=== PATIENT | male | born 1950 | race Caucasian/White ===

== ENCOUNTER → 2017-10-18 | Outpatient (CLI) | payer MEDICARE ==
--- NOTE | 2017-10-18 13:29 | CONS ---
CONSULTATION DATE OF SERVICE: 10/18/2017 This 67-year-old gentleman has been evaluated in sleep center for obstructive sleep apnea-hypopnea syndrome. HISTORY OF PRESENT ILLNESS/SLEEP WAKE EVALUATION: Patient has a long history of obstructive sleep apnea, last time was seen by me in sleep center in 2013. The patient continued to use his CPAP equipment every night. CPAP pressure is 11 cm of water. According to patient, he does not snore while he is using his machine and he does not have episodes of stopped breathing when he sleeps with the machine, but patient still wakes up from sleep up to 4 times with up to 4 episodes of nocturia. He also has restless leg symptoms. Previously, he was tried on medications for restless legs, but it was not very effective. Patient usual sleep schedule from around 10 or 11 p.m. until 6 or 7 a.m. in the morning. No problem with falling asleep. He sleeps on in different positions including back and side. [place] Sleepiness Scale today is 6. PAST MEDICAL HISTORY: Positive for hypertension, hypothyroidism, acid reflux, also history of right hip infection in 2013. PAST SURGICAL HISTORY: UPPP and nasal surgery, cardiac cath in 2003 mild blockage, but no procedures done. FAMILY HISTORY: Hypertension, heart problems, hyperlipidemia, arthritis, sinus headache, snoring. SOCIAL HISTORY: Positive history of smoking in the past, quit 30 years ago. Alcohol consumption none. PHYSICAL EXAM: During physical exam, a 67-year-old gentleman without distress. VITAL SIGNS: BP 139/80, HR 56, RR 16, height 5 feet 11 inches, weight 222, BMI 30.9, temperature 98.5, oxygen saturation in room air 97%. HEENT: PERRLA, EOMI. Oropharynx extremely low position of soft palate. NECK: Supple, no JVD. Thyroid is not palpable. LUNGS: Clear to percussion and to auscultation. Good air exchange. No wheezing or rhonchi. HEART: S1, S2 regular. No murmurs, gallops, or rubs. ABDOMEN: Slightly obese. EXTREMITIES: No clubbing or cyanosis. SILVER SOLUTION MIXER: Awake, alert, and oriented X3. Cranial nerves 2 to 7 intact. There is no fasciculation or atrophy. noted. No focal deficits observed. IMPRESSION: 1. Obstructive sleep apnea-hypopnea syndrome for many years. The patient continued to use his CPAP equipment. Presently, some problem with the usage of the machine. The machine is old. CPAP pressure is 11 cm of water. 2. Mild obesity, BMI 30.9. 3. Hypertension. 4. Hyperlipidemia. 5. Acid reflux. 6. Status post UPPP and nasal surgery. 7. History of right hip infection in 2013. PLAN: 1. Continue treatment with CPAP every night for the whole night. 2. Prescription for new CPAP unit with a pressure of 11 cm of water. 3. I will see patient for followup visit to check his compliance with CPAP after he receives new unit to evaluate his clinical response on treatment with that and to check apnea-hypopnea index while he is using his CPAP. 4. Losing weight. 5. Sleep hygiene with regular time in bed for at least 8 hours. 6. No driving if feeling any sleepiness. Thank you very much for allowing me to participate in management of your patient. Sincerely, Shane Borrego MD, PhD, FAASM Diplomat of [place] [employer] [place] [employer] Edge Sander of [facility] [place] MMODL / DAVIDN: [id number] /
== END | disposition home or self-care (01) ==
LOC: SLEEP 11:20
PROVIDERS: ATTEND Internal Medicine
DX: G47.33 Obstructive sleep apnea (adult) (pediatric) (principal); E66.9 Obesity, unspecified; I10 Essential (primary) hypertension; E78.5 Hyperlipidemia, unspecified; K21.9 Gastro-esophageal reflux disease without esophagitis; Z98.890 Other specified postprocedural states; Z86.19 Personal history of other infectious and parasitic diseases; Z99.89 Dependence on other enabling machines and devices; Z68.30 Body mass index [BMI] 30.0-30.9, adult; Z87.891 Personal history of nicotine dependence
CPT/HCPCS: 99211

== ENCOUNTER → 2018-01-15 | Outpatient (CLI) | payer MEDICARE ==
--- NOTE | 2018-01-16 13:35 | MR ---
EXAMINATION TYPE: MR shoulder RT wo con DATE OF EXAM: 01/15/2018 COMPARISON: NONE HISTORY: Right shoulder pain TECHNIQUE: Multiplanar, multisequence imaging of the right shoulder is performed without contrast. FINDINGS: Rotator Cuff: There is loss of the humeral acromial joint space. There is complete tear of the supras pinatus tendon with tendon retraction to the mid acromion level. There is some fatty infiltration and atrophy of the supraspinatus tendon. Subscapularis and infraspinatus and teres minor appear intact. Acromioclavicular Joint: There is hypertrophy with some downward spurring which can contribute to imp ingement syndrome. Glenohumeral Joint: There is elevation of the humerus in relation to the glenoid. There is narrowing of the lateral humeral joint space. Thinning of the articular cartilage is noted. Labrum: The labrum appears grossly intact given limitation of non-arthrogram study. Biceps Tendon: The long head of biceps is in normal location within bicipital groove. There is some f luid surrounding the long head of the biceps tendon compatible some mild to moderate tendinosis. Bone marrow signal: No focal abnormal marrow signal is appreciated. Other: Minimal joint fluid is present. There is fluid within the subacromial bursa and minimal fluid within the subdeltoid bursa. IMPRESSION: 1. Complete tear of the supraspinatus tendon with retraction to at least the mid acromion. Supraspina tus muscle atrophy is noted. 2. Small joint effusion. 3. Osteoarthritic degenerative change glenohumeral joint space 4. Mild to moderate tendinosis long head biceps tendon
== END | disposition home or self-care (01) ==
LOC: RADMRIMAIN 11:10
PROVIDERS: ATTEND Orthopaedic Surgery
DX: M19.011 Primary osteoarthritis, right shoulder (principal); M75.111 Incomplete rotator cuff tear or rupture of right shoulder, not specified as traumatic; M62.511 Muscle wasting and atrophy, not elsewhere classified, right shoulder; M25.811 Other specified joint disorders, right shoulder

== ENCOUNTER → 2018-03-14 | Outpatient (CLI) | payer MEDICARE ==
--- NOTE | 2018-03-14 14:10 | SFUN ---
SLEEP CENTER FOLLOW UP NOTE DATE OF SERVICE: 03/14/2018 This 67-year-old gentleman has been followed in sleep center for treatment of obstructive sleep apnea-hypopnea syndrome. Recently patient received new CPAP unit and he is able to use CPAP equipment every night for the whole night without any significant problems. Sleeps well with that. Feels well during the day. [place] Sleepiness Scale today is only 2. I checked his CPAP unit. CPAP pressure 11 cm of water. Patient demonstrated 100% compliance with treatment. He is using it 30/30 nights for more than 4 hours. Average usage is 7.3 hours. Leak is only 7 L/minute which is absolutely normal. Apnea-hypopnea index only 1.9, which is perfect. MEDICATIONS: Atenolol, Synthroid, losartan, modafinil, aspirin. PHYSICAL EXAMINATION: GENERAL: During physical exam, patient in no distress. VITAL SIGNS: BP 118/74, HR about 66, RR 16, weight 225.4, temp 98.0, oxygen saturation at room air 97%. HEENT: PERRLA, EOMI. Oropharynx status post UPPP, no uvula. NECK: Supple, no JVD. Thyroid is not palpable. LUNGS: Clear to percussion and to auscultation. Good air exchange. No wheezing or rhonchi. HEART: S1, S2 regular. No murmurs, gallops, or rubs. ABDOMEN: Slight obese. EXTREMITIES: No clubbing or cyanosis. FOAM MACHINE OPERATOR: Awake, alert, and oriented X3. Cranial nerves 2 to 7 intact. There is no fasciculation or atrophy. noted. No focal deficits observed. IMPRESSION: 1. Obstructive sleep apnea-hypopnea syndrome on full control with CPAP at 11 cm of water. Patient demonstrated 100% compliance with treatment, benefiting from treatment. 2. History of narcolepsy. Patient is on treatment with modafinil and feels normal alertness during the day. If he stops modafinil, he continued to feel sleepiness. 3. Hypertension. 4. Hyperlipidemia. 5. Acid reflux. 6. Status post UPPP and nasal surgery. 7. Hypothyroidism. 8. History of right hip infection in 2013. PLAN: 1. Patient will continue to use CPAP equipment every night. 2. Sleep hygiene with regular time in bed for at least 8 hours. 3. No driving if feeling any sleepiness. 4. Watching and losing weight. Thank you very much for allowing me to participate in management of your patient. Sincerely, Shane Borrego MD, PhD, FAASM Diplomat of [place] [employer] [employer] Over[employer] Crane Truck Loader of [facility] [place] TOMMY / JOSIAS: [id number] /
== END | disposition home or self-care (01) ==
LOC: SLEEP 10:45
PROVIDERS: ATTEND Internal Medicine
DX: G47.33 Obstructive sleep apnea (adult) (pediatric) (principal); I10 Essential (primary) hypertension; E78.5 Hyperlipidemia, unspecified; K21.9 Gastro-esophageal reflux disease without esophagitis; E03.9 Hypothyroidism, unspecified; Z98.890 Other specified postprocedural states; Z86.19 Personal history of other infectious and parasitic diseases; Z99.89 Dependence on other enabling machines and devices; Z79.899 Other long term (current) drug therapy; Z79.82 Long term (current) use of aspirin

== ENCOUNTER → 2018-09-04 | Outpatient (CLI) | payer MEDICARE ==
--- NOTE | 2018-09-11 12:07 | HM ---
HOLTER MONITOR REPORT THIS IS A 24-HOUR DCG. Patient described only activities, but did not have any symptoms. Predominant rhythm appears to be sinus with a heart rate ranging from 40 to 94 beats per minute with average heart rate of 61 beats per minute. Isolated PACs and PVCs were noted. There was no evidence of any significant SVT, VT or bradyarrhythmia on this recording. FINAL IMPRESSION: Sinus rhythm and sinus bradycardia was noted. There was no evidence of any significant tachy or bradyarrhythmias. Rare PVCs were noted. MMODL / IJN: [id number] /
== END | disposition home or self-care (01) ==
LOC: RADECHMAIN 11:56
PROVIDERS: ATTEND Psychiatry & Neurology Neurology
DX: R00.1 Bradycardia, unspecified (principal)
CPT/HCPCS: 93225; 93226

== ENCOUNTER → 2019-05-29 | Outpatient (CLI) | payer MEDICARE ==
--- NOTE | 2019-05-29 17:43 | PN ---
PROGRESS NOTE DATE OF SERVICE: 05/29/2019 This is a 69-year-old gentleman who has been followed in the sleep center for treatment of obstructive sleep apnea-hypopnea syndrome. The patient continues to use his CPAP equipment every night for the whole night without significant problems related to mask fitting, pressure or humidification. [place] Sleepiness Scale today is 6. Patient continues to use equipment every night. I checked his CPAP unit. CPAP pressure is 11 cm of water. Usage is every night, and 28/30 nights for more than 4 hours with average usage 6.9 hours per night. Leak is 4 L/minute, which is absolutely minimal. Apnea-hypopnea index is only 1.1, which is perfect. The patient is on treatment with modafinil for possible narcolepsy. On modafinil he feels well during the day; no significant excessive daytime sleepiness. He is taking 200 mg in the morning. MEDICATIONS: 1. Synthroid. 2. Atenolol. 3. Losartan. 4. Modafinil. 5. Aspirin. PHYSICAL EXAMINATION: GENERAL: A pleasant patient in no distress. VITAL SIGNS: BP 117/72, HR 52, RR 16, height 5 feet 10-1/2 inches, weight 229, body mass index 32.5, temperature 97.7, oxygen saturation at room air 94%. HEENT: PERRLA, EOMI. Evaluation of oropharynx showed tongue protrudes midline. Status post UPPP. Low position of soft palate. Mallampati III. NECK: Supple. No JVD. Thyroid is not palpable. LUNGS: Clear to percussion and to auscultation. Good air exchange. No wheezing or rhonchi. HEART: S1, S2 regular. No murmurs, gallops or rubs. ABDOMEN: Soft and nontender. Bowel sounds are present. No organomegaly. EXTREMITIES: No clubbing or cyanosis. ACCOUNT GENERAL MANAGER: Awake, alert, and oriented X3. Cranial nerves 2 to 7 intact. There is no fasciculation or atrophy. noted. No focal deficits observed. IMPRESSION: 1. Obstructive sleep apnea-hypopnea syndrome. The patient demonstrated great compliance with treatment, benefitting from treatment. 2. Narcolepsy. Patient is on treatment with modafinil 200 mg in the morning. With this regimen, no daytime sleepiness. 3. Hypertension. 4. Hyperlipidemia. 5. Acid reflux. 6. Status post UPPP and nasal surgery. 7. Hypothyroidism. 8. History of right hip infection in 2014. PLAN: 1. Patient will continue to use CPAP equipment every night for the whole night with the same pressure, 11 cm of water. 2. Patient will continue to take modafinil 200 mg in the morning for treatment of sleepiness related to narcolepsy. 3. Sleep hygiene with regular time in bed for 7-1/2 to 8 hours per night. 4. Watching and losing weight. 5. Precautions related to driving. No driving if feeling any sleepiness. 6. I will maintain all necessary prescriptions for CPAP supplies, including mask, tube, filters. Thank you very much for allowing me to participate in the management of your patient. Sincerely, Shane Borrego MD, PhD, FAASM Diplomat of [place] [employer] [place] [employer] Platemaker of [facility] [place] MMODL / DAVIDN: [id number] /
== END | disposition home or self-care (01) ==
LOC: SLEEP 14:48
PROVIDERS: ATTEND Internal Medicine
DX: G47.33 Obstructive sleep apnea (adult) (pediatric) (principal); I10 Essential (primary) hypertension; E78.5 Hyperlipidemia, unspecified; K21.9 Gastro-esophageal reflux disease without esophagitis; E03.9 Hypothyroidism, unspecified; Z79.82 Long term (current) use of aspirin; Z79.890 Hormone replacement therapy; Z79.899 Other long term (current) drug therapy; Z87.39 Personal history of other diseases of the musculoskeletal system and connective tissue; Z98.890 Other specified postprocedural states; Z99.89 Dependence on other enabling machines and devices

== ENCOUNTER → 2020-05-27 | Outpatient (CLI) | payer MEDICARE ==
--- NOTE | 2020-05-27 23:55 | SFUN ---
SLEEP CENTER FOLLOW UP NOTE DATE OF SERVICE: 05/27/2020 This is a 70-year-old gentleman who has been followed in Sleep Center for treatment of obstructive sleep apnea-hypopnea syndrome and narcolepsy. The patient continues to use his CPAP equipment every night for the whole night. No snoring with the machine. He is taking modafinil 200 mg in the morning. [place] Sleepiness Scale today 7, but sometimes he still may have episodes of sleepiness. I checked his CPAP unit. CPAP pressure is 11 cm of water. Usage is 100% of the time more than 4 hours with average usage 8.3 hours per night. Leak is only 2 L/minute. Apnea-hypopnea index is 1.3, which is absolutely perfect. MEDICATIONS: Synthroid 188 mcg once a day, Atenolol 25 mg once a day, losartan 100 mg once a day, modafinil 200 mg in the morning, iron, vitamin D, fish oil, magnesium supplements. PHYSICAL EXAMINATION: GENERAL: Patient in no distress. VITAL SIGNS: BP 124/76, HR 56, RR 16, height 5 feet 11-3/4 inches, weight pounds, body mass index 32.0, temperature 97.7, oxygen saturation at room air 98%. HEENT: PERRLA, EOMI. Evaluation of oropharynx low position of soft palate. Mallampati 3. NECK: Supple, no JVD. Thyroid is not palpable. LUNGS: Clear to percussion and to auscultation. Good air exchange. No wheezing or rhonchi. HEART: S1, S2 regular. No murmurs, gallops, or rubs. ABDOMEN: Soft and nontender. Bowel sounds are present. No organomegaly appreciated. EXTREMITIES: No clubbing or cyanosis. DRUG ABUSE TREATMENT SPECIALIST: Awake, alert, and oriented X3. Cranial nerves 2 to 7 intact. There is no fasciculation or atrophy. noted. No focal deficits observed. IMPRESSION: 1. Obstructive sleep apnea-hypopnea syndrome. Patient demonstrated 100% compliance with treatment, benefitting from treatment. 2. Narcolepsy, on treatment with modafinil in the morning. 3. Obesity. 4. Hypertension. 5. Hyperlipidemia. 6. Acid reflux. 7. Hypothyroidism. 8. Status post UPPP and nasal surgery. PLAN: 1. Patient will continue to use PAP equipment every night for the whole night. 2. Sleep hygiene with regular time in bed for at least 7-1/2 to 8 hours. 3. Precautions related to driving. No driving if feeling sleepiness. 4. I will maintain all necessary prescription for PAP supplies including mask, tube, filters. 5. Watching weight. 6. No driving if feeling sleepiness. 7. Follow-up visit in 6 months or earlier if patient has any problems. 8. Dose of modafinil could be considered to increase to 300 mg in the morning because sometimes patient feels tiredness and sleepiness on the second part of the day. Thank you very much for allowing me to participate in management of your patient. Sincerely, Shane Borrego MD, PhD, FAASM Diplomat of [place] [employer] Internal Medicine [employer] Specialist of [facility] [place] TOMMY / JOSIAS: [id number] /
== END | disposition home or self-care (01) ==
LOC: SLEEP 10:10
PROVIDERS: ATTEND Internal Medicine
DX: G47.33 Obstructive sleep apnea (adult) (pediatric) (principal); G47.419 Narcolepsy without cataplexy; I10 Essential (primary) hypertension; E78.5 Hyperlipidemia, unspecified; K21.9 Gastro-esophageal reflux disease without esophagitis; E66.9 Obesity, unspecified; E03.9 Hypothyroidism, unspecified; Z98.890 Other specified postprocedural states; Z99.89 Dependence on other enabling machines and devices

== ENCOUNTER → 2020-08-30 | Outpatient (CLI) | payer MEDICARE | END | disposition home or self-care (01) | LOC: LABWHC1 08:58 | PROVIDERS: ATTEND Surgery | DX: Z20.828 Contact with and (suspected) exposure to other viral communicable diseases (principal) | CPT/HCPCS: U0003; C9803 ==

== ENCOUNTER 2020-09-03 09:59 | Day surgery (SDC) | payer MEDICARE ==
[2020-08-30 15:50] VITALS: BMI 32.8
[~2020-09-03 09:59] MED LIST: LACTATED RINGERS 1,000 ML IV SCH
[2020-09-03] MEDS ORDERED: LIDOCAINE 1% (10MG/ML) FOR IV START INTRADERMA ONE (10:35)
[2020-09-03 10:37] VITALS: TEMP 98.4
[2020-09-03] MEDS ORDERED: PROPOFOL 10 MG/ML 20 ML VIAL IV ONE (10:38)
[2020-09-03] MEDS ORDERED: LIDOCAINE 1% INJ 10MG/ML (20 ML MDV) ONE (10:38)
--- NOTE | 2020-09-03 11:01 | P.GSHP ---
History of Present Illness H&P Date: 09/03/20 70-year-old male presents for screening colonoscopy. His last colonoscopy was many years ago. Denies any recent blood in his stool. Denies any abdominal pain. Denies family history of colon cancer. 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, sinus surgery, FLUID REMOVED FROM LEFT HIP Past Anesthesia/Blood Transfusion Reactions: No Reported Reaction Smoking Status: Former smoker - Past Family History Sister(s) Family Medical History: Cancer Additional Family Medical History / Comment(s): BREAST CANCER Father Family Medical History: Myocardial Infarction ([place]) Medications and Allergies Home Medications Medication Instructions Recorded Confirmed Type Levothyroxine Sodium [Synthroid] 188 mcg .ROUTE AC-BRKFST 02/11/15 08/30/20 History modafiniL [Modafinil] 200 mg AC-BRKFST 02/11/15 08/30/20 History atenoloL [Tenormin] 25 mg PO AC-BRKFST tab 02/16/15 08/30/20 Rx Cinnamon Bark [Cinnamon] 500 mg PO DAILY 03/21/16 08/30/20 History Magnesium 200 mg PO DAILY 03/21/16 08/30/20 History Losartan Potassium [Cozaar] 100 mg PO DAILY 08/30/20 08/30/20 History Allergies Allergy/AdvReac Type Severity Reaction Status Date / Time vancomycin AdvReac Rash/Hives Verified 09/03/20 10:11 Surgical - Exam Osteopathic Statement: *. No significant issues noted on an osteopathic structural exam other than those noted in the History and Physical/Consult. Vital Signs Temp Pulse Resp BP Pulse Ox 98.4 F 70 16 160/93 96 09/03/20 10:36 09/03/20 10:36 09/03/20 10:36 09/03/20 10:36 09/03/20 10:36 - General no distress - Neck trachea midline - Respiratory normal respiratory effort - Abdomen Abdomen: soft, non tender - Psychiatric oriented to time, oriented to person, oriented to place Assessment and Plan Plan: 70-year-old male presents for screening colonoscopy. Risks, benefits and alternatives were provided to the patient. He did provide consent. Further recommendations after procedure.
--- NOTE | 2020-09-03 11:03 | P.PCN ---
Date of Procedure: 09/03/20 Preoperative Diagnosis: Screening Postoperative Diagnosis: Descending colon polyp Procedure(s) Performed: Colonoscopy with hot snare polypectomy Surgeon: Marnie Mars Pathology: other (Descending colon polyp) Condition: stable Disposition: same day Indications for Procedure: 70-year-old male presents for screening colonoscopy. Denies any blood in his stool. Denies any family history of colon cancer. Denies any abdominal pain. Risks, benefits and alternatives were provided to the patient. He did provide consent prior to attending the endoscopy suite. Operative Findings: Descending colon polyp Description of Procedure: The patient was brought to the endoscopy suite. He was then placed in left lateral decubitus position and adequate sedation was achieved using conscious sedation. A digital rectal exam was armed and mild internal hemorrhoids were palpated. An endoscope was then placed in the rectum and advanced to the cecum as identified by landmarks including the appendiceal orifice and the ileocecal valve. The prep was good. The colonoscope was then slowly withdrawn, examining for any mucosal abnormalities. The cecum, ascending, transverse, descending and sigmoid colon were visualized adequately. No large masses were noted. A small polyp was noted in the ascending colon. This was pedunculated. It was removed with hot snare polypectomy. Hemostasis was maintained. No obvious diverticulosis. Retroflexion was performed in the rectum and mild internal hemorrhoids were visible. Excess air was removed, the colonoscope withdrawn and the procedure terminated. The patient was then transferred to the recovery unit in stable condition. Next colonoscopy should be performed in 5 years.
[2020-09-03 11:22] VITALS: BP 147/67; PULSE 67; RESP 18
== END 2020-09-03 11:36 | disposition home or self-care (01) ==
LOC: ORWHC2ENDO 09:59
PROVIDERS: ATTEND Surgery
DX: Z12.11 Encounter for screening for malignant neoplasm of colon (principal); D12.4 Benign neoplasm of descending colon; K64.8 Other hemorrhoids; K21.9 Gastro-esophageal reflux disease without esophagitis; E78.5 Hyperlipidemia, unspecified; I10 Essential (primary) hypertension; M19.90 Unspecified osteoarthritis, unspecified site; G47.30 Sleep apnea, unspecified; Z99.89 Dependence on other enabling machines and devices; E07.9 Disorder of thyroid, unspecified; Z92.3 Personal history of irradiation; G47.419 Narcolepsy without cataplexy; Z86.19 Personal history of other infectious and parasitic diseases; Z89.022 Acquired absence of left finger(s); Z98.890 Other specified postprocedural states; Z87.891 Personal history of nicotine dependence; Z80.3 Family history of malignant neoplasm of breast; Z82.49 Family history of ischemic heart disease and other diseases of the circulatory system; Z79.890 Hormone replacement therapy; Z79.899 Other long term (current) drug therapy; Z88.1 Allergy status to other antibiotic agents
CPT/HCPCS: 88305; 45385; J2001; J2704

== ENCOUNTER → 2020-11-17 | Outpatient (CLI) | payer MEDICARE ==
[2020-11-17 08:52] LABS: African American GFR (CKD) >90 (>60 ml/min/1.73 sqM); Blood Urea Nitrogen 16 mg/dL (9-20); Non-African American GFR(CKD) 89 (>60 ml/min/1.73 sqM)
--- NOTE | 2020-11-17 09:45 | CT ---
EXAMINATION TYPE: CT chest w con DATE OF EXAM: 11/17/2020 COMPARISON: None HISTORY: SOB CT DLP: 639.7 mGycm Automated exposure control for dose reduction was used. CONTRAST: CT scan of the chest is performed with IV Contrast, patient injected with 100 mL of Isovue 300. FINDINGS: LUNGS: The lungs are grossly clear, there is no concerning parenchymal mass or nodule identified. T here is no pleural effusion or pneumothorax seen. The tracheobronchial tree is patent. MEDIASTINUM: There are no greater than 1 cm hilar or mediastinal lymph nodes. No pericardial effusi on is seen. Thoracic aorta is of normal caliber. The heart is not enlarged. UPPER ABDOMEN: Hepatic steatosis noted. OTHER: No additional significant abnormality is seen. IMPRESSION: No significant abnormality is appreciated.
== END | disposition home or self-care (01) ==
LOC: RADCTMAIN 08:09
PROVIDERS: ATTEND Family Medicine
DX: J45.20 Mild intermittent asthma, uncomplicated (principal); R06.02 Shortness of breath
CPT/HCPCS: 82565; 84520; 71260; 36415; Q9967

== ENCOUNTER → 2020-11-25 | Outpatient (CLI) | payer MEDICARE ==
--- NOTE | 2020-11-25 19:54 | SFUN ---
SLEEP CENTER FOLLOW UP NOTE DATE OF SERVICE: 11/25/2020 70-year-old gentleman has been followed in Sleep Center for treatment of obstructive sleep apnea-hypopnea syndrome and narcolepsy. The patient continues to take modafinil 200 mg in the morning for excessive daytime sleepiness. He continues to use his CPAP equipment every night and with the CPAP therapy and also with medication, he feels well. [place] Sleepiness Scale is 9 today, which is in acceptable range. I checked his CPAP unit. CPAP pressure of 11 cm of water, usage 28/30 nights for more than 4 hours with average usage is 7.3 hours per night, which is normal with compliance. Leak is only 4 L/minute. Apnea-hypopnea index is 1.3, which is perfect. MEDICATIONS: Synthroid 88 mcg once a day. Modafinil 200 mg once a day. Losartan 100 mg once a day, Atenolol 25 mg once a day, vitamins, magnesium supplements. PHYSICAL EXAMINATION: GENERAL: Patient in no distress. BP 139/78, HR 64, RR 12, height 5 feet 11 inches, weight 236.8 pounds, temperature 97.6, oxygen saturation at room air 96%. BMI 33. Oropharynx low position of soft palate. Mallampati 3. NECK: Supple, no JVD. Thyroid is not palpable. LUNGS: Clear to percussion and to auscultation. Good air exchange. No wheezing or rhonchi. HEART: S1, S2 regular. No murmurs, gallops, or rubs. ABDOMEN: Soft and nontender. Bowel sounds are present. No organomegaly appreciated. EXTREMITIES: No clubbing or cyanosis. TERMITE EXTERMINATOR HELPER: Awake, alert, and oriented X3. Cranial nerves 2 to 7 intact. There is no fasciculation or atrophy. noted. No focal deficits observed. IMPRESSION: 1. Obstructive sleep apnea-hypopnea syndrome. Patient demonstrated great compliance with treatment. Normal respiration on CPAP, benefitting from treatment. 2. Narcolepsy, on treatment with modafinil, the patient did tolerate his sleepiness well during the day. 3. Obesity. 4. Hypertension. 5. Hyperlipidemia. 6. Acid reflux. 7. Hypothyroidism. 8. Status post UPPP and nasal surgery. PLAN: Continue treatment with modafinil 200 mg. If necessary, dose could be increased to 300 mg. 1. Patient will continue to use PAP equipment every night for the whole night. 2. Sleep hygiene with regular time in bed for at least 7-1/2 to 8 hours. 3. Precautions related to driving. No driving if feeling sleepiness. 4. I will maintain all necessary prescription for PAP supplies including mask, tube, filters. 5. Watching weight. 6. Follow-up visit in 6 months or earlier if patient has any problems. Thank you very much for allowing me to participate in management of your patient. Sincerely, Shane Borrego MD, PhD, FAASM Diplomat of [place] [employer] [employer] Bacteriology Research Assistant of [facility] [place] MMODL / DAVIDN: [id number] / CHARLIE
== END | disposition home or self-care (01) ==

== ENCOUNTER → 2021-05-26 | Outpatient (CLI) | payer MEDICARE ==
--- NOTE | 2021-05-26 17:59 | SFUN ---
SLEEP CENTER FOLLOW UP NOTE DATE OF SERVICE: 05/26/2021 This 71-year-old gentleman has been followed in Sleep Center for treatment of obstructive sleep apnea-hypopnea syndrome. The patient continues to use his CPAP equipment every night; sometimes not for the whole night, but generally he is using the machine well and sleeps well with the machine, feels well during the day. [place] Sleepiness Scale is 8, which is normal. I checked his CPAP unit. CPAP pressure is 11 cm of water. Usage is 30/30 nights and 25/30 nights for more than 4 hours, average 6.3 hours per night. Leak is medium at 26 L/minute, but apnea-hypopnea index is totally normal, only 1.2. The patient is on treatment with modafinil for sleepiness related to narcolepsy during the day. As I mentioned above, his [place] Sleepiness Scale is normal and he feels well on modafinil. MEDICATIONS: 1. Synthroid 88 mcg once a day. 2. Modafinil 200 mg once a day. 3. Losartan 100 mg once a day. 4. Atenolol 25 mg once a day. PHYSICAL EXAMINATION: GENERAL: Pleasant patient in no distress. VITAL SIGNS: BP 121/74, HR 56, RR 12, height 5 feet 11 inches, weight 221.6. The patient lost 15 pounds since his previous visit. Body mass index 30.8, temperature 97.2, oxygen saturation at room air 97%. HEENT: PERRLA, EOMI, evaluation of oropharynx showed tongue protrudes midline. Low position of soft palate; Mallampati III. NECK: Supple, no JVD. Thyroid is not palpable. LUNGS: Clear to percussion and to auscultation. Good air exchange. No wheezing or rhonchi. HEART: S1, S2 regular. No murmurs, gallops, or rubs. ABDOMEN: Soft and nontender. Bowel sounds are present. No organomegaly appreciated. EXTREMITIES: No clubbing or cyanosis. SAND CUTTER: Awake, alert, and oriented X3. Cranial nerves 2 to 7 intact. There is no fasciculation or atrophy. noted. No focal deficits observed. IMPRESSION: 1. Obstructive sleep apnea-hypopnea syndrome. The patient demonstrated good compliance with treatment, benefitting from treatment. Normal respiration on CPAP. 2. Narcolepsy, on treatment with modafinil. The patient's sleepiness is under control. 3. Hypertension. 4. Hyperlipidemia. 5. Mild obesity. Patient lost 15 pounds his since previous visit. 6. Acid reflux. 7. Hypothyroidism. 8. Status post UPPP and nasal surgery. PLAN: 1. Will continue modafinil 200 mg once a day in the morning. 2. Patient will continue to use PAP equipment every night for the whole night. 3. Sleep hygiene with regular time in bed for at least 7-1/2 to 8 hours. 4. Precautions related to driving. No driving if feeling sleepiness. 5. I will maintain all necessary prescription for PAP supplies including mask, tube, filters. 6. Watching weight. 7. Follow-up visit in 6 months or earlier if patient has any problems. Thank you very much for allowing me to participate in the management of your patient. Sincerely, Shane Borrego MD, PhD, FAASM Diplomat of [employer] Sleep Medicine Board of [place] [employer] Medicine Certified Veterinary Technician of [facility] [place] MMHENRIKL / DAVIDN: [id number] /
== END ==
LOC: SLEEP 14:54
PROVIDERS: ATTEND Internal Medicine
DX: G47.33 Obstructive sleep apnea (adult) (pediatric) (principal); I10 Essential (primary) hypertension; E78.5 Hyperlipidemia, unspecified; E66.9 Obesity, unspecified; K21.9 Gastro-esophageal reflux disease without esophagitis; E03.9 Hypothyroidism, unspecified; Z99.89 Dependence on other enabling machines and devices; Z79.899 Other long term (current) drug therapy; Z98.890 Other specified postprocedural states; Z88.1 Allergy status to other antibiotic agents; Z87.891 Personal history of nicotine dependence

== ENCOUNTER → 2021-10-05 | Outpatient (CLI) | payer MEDICARE ==
--- NOTE | 2021-10-07 08:09 | MR ---
EXAMINATION TYPE: MR lumbar spine wo con DATE OF EXAM: 10/05/2021 COMPARISON: NONE HISTORY: Lumbar Radiculopathy TECHNIQUE: Multiplanar, multisequence imaging of the lumbar spine is performed without IV contrast. FINDINGS: Sagittal images of the lumbar spine show vertebral body heights to appear satisfactory. Ali gnment is straightened with slight grade 1 retrolisthesis L5 on S1. Multilevel disc desiccation. Adva nced disc space narrowing L5-S1 level with heterogeneous Modic type II changes. Additional mild-to-mo derate multilevel disc space narrowing with relative sparing of L1-L2 level The conus medullaris is normal in position and signal ending superior L1 level. Axial images show T12-L1 and L1-L2 levels to appear within normal limits. Axial images at L2-L3 level show [id number] broad disc bulge with right extraforaminal disc pro trusion component axial image 19 effacing anterior thecal sac and mild facet arthropathy bilaterally. The left-sided neural foramina is patent. Right side shows moderate inferior neural foraminal narrow ing. Axial images at L3-L4 level show mild facet arthropathy and ligamentum flavum hypertrophy. There is m ild broad disc bulge with right lateral disc protrusion component. There is mild effacement of the an terior thecal sac. There is mild/moderate right-sided anterior-inferior neural foraminal narrowing. L eft-sided neural foramina is patent. Axial images at the L4-L5 level show mild/moderate facet arthropathy and ligamentum flavum hypertroph y effacing posterior thecal sac. There is moderate broad-based disc bulge effacing the anterior theca l sac. There is mild right and moderate left-sided neural foraminal narrowing. Axial images at L5-S1 level show moderate facet arthropathy and ligamentum flavum hypertrophy. Spondy lolisthesis with broad-based posterior disc protrusion is seen. There is mild effacement of the left thecal sac. There is moderate bilateral inferior neural foraminal narrowing. Paraspinal muscle bulk is preserved. IMPRESSION: Straightening of lumbar spine with multilevel degenerative changes as detailed above.
== END | disposition home or self-care (01) ==
LOC: RADMRIMAIN 12:45
PROVIDERS: ATTEND Psychiatry & Neurology Neurology
DX: M51.17 Intervertebral disc disorders with radiculopathy, lumbosacral region (principal); M47.27 Other spondylosis with radiculopathy, lumbosacral region; M43.17 Spondylolisthesis, lumbosacral region; M99.73 Connective tissue and disc stenosis of intervertebral foramina of lumbar region
CPT/HCPCS: 72148

== ENCOUNTER → 2022-06-14 | Outpatient (CLI) | payer MEDICARE ==
--- NOTE | 2022-06-14 14:20 | P.PN ---
Subjective DATE: 06/14/2022 FOLLOW UP VISIT. Patient with obstructive sleep apnea hypopnea syndrome and narcolepsy 2 return to sleep center for follow-up visit. Information from previous visit have been reviewed. Patient is using PAP equipment every night for the whole night, getting PAP supplies in time. The patient does not have significant problems with the mask, PAP unit and humidification. [place] sleepiness scale is 10, which is borderline. On modafinil his alertness is on control during the day. I checked PAP unit. PAP unit pressure 11 cm H2O. Usage is 80 % for more then 4 hours, average 7.4 hours per night. Leak is 4 l/m, which is in great range. Apnea Hypopnea Index is 1.2, which is normal. MEDICATIONS:1. Atenolol 25 mg once a day 2. Losartan 100 mg once a day 3. Synthroid 88 g once a day 4. Modafinil 200 mg once a day During physical exam: GENERAL: A pleasant patient without any distress. VITAL SIGNS: BP 145/72, HR 60, RR 16 , weight 220, height 5 foot 11 inches, body mass index 30.6, temperature 98.0, oxygen saturation at room air 96 % . HEENT: PERRLA, EOMI.low position of soft palate, Mallapati 3. NECK: Supple. No JVD. LUNGS: Clear to percussion and to auscultation. Good air exchange. No wheezing or rhonchi. HEART: S1, S2 regular. ABDOMEN: Soft and nontender.[ Slightly obese EXTREMITIES: No clubbing or cyanosis. ED TRANSPORTER: Awake, alert, and oriented x3. No focal deficit. Impressions: 1. Obstructive sleep apnea-hypopnea syndrome. Patient demonstrated great compliance with treatment, benefiting from treatment. 2. [Narcolepsy2. Alertness is on control with modafinil. 3. [Mild obesity 4. [Hypertension 5. [Hyperlipidemia 6. [Acid reflux 7. [Hypothyroidism 8. [Status post UPPP and nasal surgery. . Plan: 1. Continue using PAP equipment every night for the whole night. 2. To change air filter at least 1-2 times per month. 3. PAP unit should stay lower then position of the head. 4. Advised patient to remove all remaining water from humidifier canister daily and make it dry after each usage. Refill canister with fresh distilled water before each usage. 5. Sleep hygiene with regular time in bed for at least 8 hours. 6. Precautions related to driving. No driving if feel any sleepiness. 7. I will maintain prescription for PAP supplies including mask, tube, filters. 8. Follow up visit in 6 months or earlier if patient has any problems. 9. Watching and losing weight. 10.To continue modafinil 200 mg in the morning. Thank you very much for allowing me to participate in the management of your patient. Shane Borrego MD, PhD, FAASM. Diplomat of [place] [employer] Medicine, Sleep Medicine Board by [place] [employer] Medicine Integration Technician of [facility] [place]
== END ==
LOC: SLEEP 13:49
PROVIDERS: ATTEND Internal Medicine
DX: G47.33 Obstructive sleep apnea (adult) (pediatric) (principal); E66.01 Morbid (severe) obesity due to excess calories; I10 Essential (primary) hypertension; Z88.1 Allergy status to other antibiotic agents; Z87.891 Personal history of nicotine dependence; E78.5 Hyperlipidemia, unspecified; K21.9 Gastro-esophageal reflux disease without esophagitis; E03.9 Hypothyroidism, unspecified; Z79.890 Hormone replacement therapy; Z99.89 Dependence on other enabling machines and devices; Z98.890 Other specified postprocedural states

== ENCOUNTER → 2022-12-14 | Outpatient (CLI) | payer MEDICARE ==
--- NOTE | 2022-12-14 13:49 | P.PN ---
Subjective DATE: 12/14/2022 FOLLOW UP VISIT. Patient with obstructive sleep apnea hypopnea syndrome and narcolepsy return to sleep center for follow-up visit. Information from previous visit have been reviewed. Patient is using PAP equipment every night for the whole night, getting PAP supplies in time. The patient does not have significant problems with the mask, PAP unit and humidification. Patient is on modafinil 200 mg once a day in the morning to prevent excessive daytime sleepiness [place] sleepiness scale is 7, which is normal. I checked information from PAP unit. PAP unit pressure 5-15, average 10.8 cm H2O. Usage is 100 % for more then 4 hours, average 7.8 hours per night. Leak is 7 l/m, which is in acceptable range. Apnea Hypopnea Index is 1.6, which is normal. MEDICATIONS:1. Losartan 100 mg once a day 2. Synthroid 88 g once a day 3. Atenolol 25 mg once a day 4. Modafinil 200 mg once a day During physical exam: GENERAL: A pleasant patient without any distress. VITAL SIGNS: BP 161/95, HR 70, RR 16, weight 229.8, temperature 98.2, oxygen saturation at room air 98 % . HEENT: PERRLA, EOMI.low position of soft palate, Mallapati 3. NECK: Supple. No JVD. LUNGS: Clear to percussion and to auscultation. Good air exchange. No wheezing or rhonchi. HEART: S1, S2 regular. ABDOMEN: Soft and nontender. Obese EXTREMITIES: No clubbing or cyanosis. STUDENT COUNSELOR: Awake, alert, and oriented x3. No focal deficit. Impressions: 1. Obstructive sleep apnea-hypopnea syndrome. Patient demonstrated great compliance with treatment, benefiting from treatment. 2. Obesity in mild range, body mass and is 31.9, patient increased his weight on 9 pounds comparing to the previous visit. 3. Narcolepsy 2. 4. Hypertension. 5. Acid reflux. 6. Hyperlipidemia. 7. Hypothyroidism. 8. Status post UPPP and nasal surgery. Plan: 1. Continue using PAP equipment every night for the whole night. 2. To change air filter at least 1-2 times per month. 3. Continue modafinil 200 mg once a day in the morning 4. Advised patient to remove all remaining water from humidifier canister daily and make it dry after each usage. Refill canister with fresh distilled water before each usage. 5. Sleep hygiene with regular time in bed for at least 8 hours. 6. Precautions related to driving. No driving if feel any sleepiness. 7. I will maintain prescription for PAP supplies including mask, tube, filters. 8. Watching and losing weight. 9. Follow up visit in 6 months or earlier if patient has any problems. Thank you very much for allowing me to participate in the management of your patient. Shane Borrego MD, PhD, FAASM. Diplomat of [employer] [employer] Medicine, Sleep Medicine Board by [employer] Medicine Associate Financial Representative of [facility] [place]
== END ==
LOC: SLEEP 13:23
PROVIDERS: ATTEND Internal Medicine
DX: G47.33 Obstructive sleep apnea (adult) (pediatric) (principal); Z79.890 Hormone replacement therapy; E03.9 Hypothyroidism, unspecified; E66.9 Obesity, unspecified; E78.5 Hyperlipidemia, unspecified; G47.419 Narcolepsy without cataplexy; I10 Essential (primary) hypertension; K21.9 Gastro-esophageal reflux disease without esophagitis; Z79.899 Other long term (current) drug therapy; Z98.890 Other specified postprocedural states; Z99.89 Dependence on other enabling machines and devices; Z88.1 Allergy status to other antibiotic agents; Z87.891 Personal history of nicotine dependence
CPT/HCPCS: 99212

== ENCOUNTER → 2023-06-28 | Outpatient (CLI) | payer MEDICARE ==
--- NOTE | 2023-06-28 12:13 | P.PN ---
Subjective DATE: 06/28/2023 FOLLOW UP VISIT. Patient with obstructive sleep apnea hypopnea syndrome return to sleep center for follow-up visit. Information from previous visit have been reviewed. Patient is using PAP equipment every night for the whole night, getting PAP supplies in time. The patient does not have significant problems with the mask, PAP unit and humidification. [place] sleepiness scale is 6, which is normal. I checked information from PAP unit and discussed it with patient in details. PAP unit pressure 5-15, average 10.4 cm H2O. Usage is 100 % for more then 4 hours, average 7.7 hours per night. Leak is 26 l/m, which is in acceptable range. Apnea Hypopnea Index is 1.4, which is normal. MEDICATIONS:1. Atenolol 25 mg once a day 2. Losartan 100 mg once a day 3. Synthroid 81 g once a day 4. Modafinil 200 mg once a day During physical exam: GENERAL: A pleasant patient without any distress. VITAL SIGNS: BP 150/93, HR 55, RR 16 , weight 234.4, temperature 97.9, oxygen saturation at room air 98 % . HEENT: PERRLA, EOMI.low position of soft palate, Mallapati 3 . NECK: Supple. No JVD. LUNGS: Clear to percussion and to auscultation. Good air exchange. No wheezing or rhonchi. HEART: S1, S2 regular. ABDOMEN: Soft and nontender.[] EXTREMITIES: No clubbing or cyanosis. ADMINISTRATIVE FELLOW: Awake, alert, and oriented x3. No focal deficit. Impressions: 1. Obstructive sleep apnea-hypopnea syndrome. Patient demonstrated great compliance with treatment, benefiting from treatment. 2. With a mild obesity, patient lost 5 pounds since previous visit. 3. Narcolepsy type II. 4. Hypertension. 5. Acid reflux. 6. Hyperlipidemia. 7. Hypothyroidism. 8. Status post UPPP and nasal surgery. Plan: 1. Continue using PAP equipment every night for the whole night. I slightly increased pressure to the range 516 centimeters of water. 2. To change air filter at least 1-2 times per month. 3. PAP unit should stay lower then position of the head. 4. Advised patient to remove all remaining water from humidifier canister daily and make it dry after each usage. Refill canister with fresh distilled water before each usage. 5. Sleep hygiene with regular time in bed for at least 8 hours. 6. Precautions related to driving. No driving if feel any sleepiness. 7. I will maintain prescription for PAP supplies including mask, tube, filters. 8. Follow up visit in 6 months or earlier if patient has any problems. 9. Watching weight. Thank you very much for allowing me to participate in the management of your patient. Shane Borrego MD, PhD, FAASM. Diplomat of [employer] Board of Sleep Medicine, Sleep Medicine Board by [employer] [employer] Internal Medicine Wick And Base Assembler of [facility] [place]
== END ==
LOC: 3 N SLEEP 11:25
PROVIDERS: ATTEND Internal Medicine
DX: G47.33 Obstructive sleep apnea (adult) (pediatric) (principal); E66.9 Obesity, unspecified; I10 Essential (primary) hypertension; K21.9 Gastro-esophageal reflux disease without esophagitis; E78.5 Hyperlipidemia, unspecified; E03.9 Hypothyroidism, unspecified; G47.419 Narcolepsy without cataplexy; Z79.890 Hormone replacement therapy; Z79.899 Other long term (current) drug therapy; Z98.890 Other specified postprocedural states; Z99.89 Dependence on other enabling machines and devices; Z88.8 Allergy status to other drugs, medicaments and biological substances; Z87.891 Personal history of nicotine dependence
CPT/HCPCS: 99212

== ENCOUNTER → 2024-01-24 | Outpatient (CLI) | payer MEDICARE ==
--- NOTE | 2024-01-24 12:10 | P.PROGSL ---
Subjective DATE: 01/24/2024 FOLLOW UP VISIT. Patient with obstructive sleep apnea hypopnea syndrome and narcolepsy type II return to sleep center for follow-up visit. Information from previous visit have been reviewed. Patient is using PAP equipment every night for the whole night, getting PAP supplies in time. The patient does not have significant problems with the mask, PAP unit and humidification. [place] sleepiness scale is 8, which is in normal range. Patient is on treatment with modafinil 200 mg in the morning to prevent excessive daytime sleepiness secondary to narcolepsy. With medication patient is able to control his alertness well during the day. No any side effects. I checked information from PAP unit. PAP unit pressure 5-16, average 10.1 cm H2O. Usage is 100% for more then 4 hours, average 7.4 hours per night. Leak is 12 l/m, which is in acceptable range. Apnea Hypopnea Index is 1.1, which is normal. MEDICATIONS: Please see below During physical exam: GENERAL: A pleasant patient without any distress. VITAL SIGNS: Please see below, weight 230.6 pounds. HEENT: PERRLA, EOMI.low position of soft palate, Mallapati 3 . NECK: Supple. No JVD. LUNGS: Clear to percussion and to auscultation. Good air exchange. No wheezing or rhonchi. HEART: S1, S2 regular. ABDOMEN: Soft and nontender.[] EXTREMITIES: No clubbing or cyanosis. CHARGE WEIGHER: Awake, alert, and oriented x3. No focal deficit. Impressions: 1. Obstructive sleep apnea-hypopnea syndrome. Patient demonstrated great compliance with treatment, benefiting from treatment. 2. Mild obesity, BMI 32.5, patient lost 4 pounds comparing with previous visit. 3. Narcolepsy type II. 4. Hypertension. 5. Acid reflux. 6. Hyperlipidemia. 7. Hypothyroidism. 8. COPD. 9. Status post UPPP and nasal surgery. Plan: 1. Continue using PAP equipment every night for the whole night. 2. To change air filter at least 1-2 times per month. 3. PAP unit should stay lower then position of the head. 4. Advised patient to remove all remaining water from humidifier canister daily and make it dry after each usage. Refill canister with fresh distilled water before each usage. 5. Sleep hygiene with regular time in bed for at least 8 hours. 6. Precautions related to driving. No driving if feel any sleepiness. 7. I will maintain prescription for PAP supplies including mask, tube, filters. 8. Follow up visit in 6 months or earlier if patient has any problems. 9. Watching weight. 10. Patient will continue modafinil 200 mg in the morning. Thank you very much for allowing me to participate in the management of your patient. Shane Borrego MD, PhD, FAASM. Diplomat of [place] Board of Sleep Medicine, Sleep Medicine Board by [place] Board of Internal Medicine Contact Manager of [facility] [place] Objective - Vital Signs Vital Signs: Vital Signs Temp 97.7 F 01/24/24 11:30 Pulse 58 L 01/24/24 11:30 Resp 18 01/24/24 11:30 BP 172/85 01/24/24 11:30 Pulse Ox 98 01/24/24 11:30 FiO2 Intake & Output 01/23/24 01/24/24 01/24/24 18:59 06:59 18:59 Weight 104.496 kg Home Medications: Home Medications Medication Instructions Recorded Confirmed Type Levothyroxine Sodium [Synthroid] 188 mcg .ROUTE AC-BRKFST 02/11/15 01/24/24 History modafiniL [Modafinil] 200 mg AC-BRKFST 02/11/15 01/24/24 History atenoloL [Tenormin] 25 mg PO AC-BRKFST tab 02/16/15 01/24/24 Rx Cinnamon Bark [Cinnamon] 500 mg PO DAILY 03/21/16 08/30/20 History Magnesium 200 mg PO DAILY 03/21/16 08/30/20 History Losartan Potassium [Cozaar] 100 mg PO DAILY 08/30/20 01/24/24 History Tiotropium 18 Mcg/Puff [Spiriva] 1 puff INHALATION BID 01/24/24 01/24/24 History
[2024-01-24 12:18] VITALS: BP 172/85; PULSE 58; RESP 18; TEMP 97.7
== END ==
LOC: 3 N SLEEP 11:21
PROVIDERS: ATTEND Internal Medicine
DX: G47.33 Obstructive sleep apnea (adult) (pediatric) (principal); E66.9 Obesity, unspecified; G47.419 Narcolepsy without cataplexy; I10 Essential (primary) hypertension; K21.9 Gastro-esophageal reflux disease without esophagitis; E78.5 Hyperlipidemia, unspecified; E03.9 Hypothyroidism, unspecified; J44.9 Chronic obstructive pulmonary disease, unspecified; Z98.890 Other specified postprocedural states; Z99.89 Dependence on other enabling machines and devices; Z68.32 Body mass index [BMI] 32.0-32.9, adult; Z88.1 Allergy status to other antibiotic agents; Z79.890 Hormone replacement therapy; Z79.899 Other long term (current) drug therapy; Z87.891 Personal history of nicotine dependence
CPT/HCPCS: 99212

== ENCOUNTER → 2024-09-18 | Outpatient (CLI) | payer MEDICARE ==
[2024-09-18 11:20] VITALS: BP 157/92; PULSE 57; RESP 16; TEMP 97.5
--- NOTE | 2024-09-18 11:32 | P.PROGSL ---
Subjective DATE: 09/18/2024 FOLLOW UP VISIT. Patient with obstructive sleep apnea hypopnea syndrome and narcolepsy return to sleep center for follow-up visit. Information from previous visit have been reviewed. Patient is using PAP equipment every night for the whole night, getting PAP supplies in time. The patient does not have significant problems with the mask, PAP unit and humidification. [place] sleepiness scale is 9, which is borderline. I checked information from PAP unit. PAP unit pressure 5-15, average 10.1 cm H2O. Usage is 100% for more then 4 hours, average 8.1 hours per night. Leak is normal 5 l/m. Apnea Hypopnea Index is 1.2, which is perfect. The patient is on modafinil 200 mg in the morning to prevent excessive sleepiness. No side effects of medication. Patient was able to control his alertness with modafinil. MEDICATIONS have been reviewed, please see below. During physical exam: GENERAL: A pleasant patient without any distress. VITAL SIGNS: Please see below, weight is 233.8 lbs. HEENT: PERRLA, EOMI.low position of soft palate, Mallapati 3. NECK: Supple. No JVD. LUNGS: Clear to percussion and to auscultation. Good air exchange. No wheezing or rhonchi. HEART: S1, S2 regular. ABDOMEN: Soft and nontender.[] EXTREMITIES: No clubbing or cyanosis. CAR VARNISHER: Awake, alert, and oriented x3. No focal deficit. Impressions: 1. Obstructive sleep apnea-hypopnea syndrome. Patient demonstrated great compliance with treatment, benefiting from treatment. 2. Narcolepsy type II. 3. Mild obesity, BMI 32.4, patient increased weight on 3 pounds comparing with previous visit. 4. Hypertension. 5. Hyperlipidemia. 6. History of COPD. 7. Hypothyroidism. 8. Status post UPPP and nasal surgery. 9. Acid reflux. Plan: 1. Continue using PAP equipment every night for the whole night. 2. Sleep hygiene with regular time in bed for at least 7.5-8 hours 3. PAP unit should stay lower then position of the head. 4. Advised patient to remove all remaining water from humidifier canister daily and make it dry after each usage. Refill canister with fresh distilled water before each usage. 5. Watching and losing weight. 6. Precautions related to driving. No driving if feel any sleepiness. 7. I will maintain prescription for PAP supplies including mask, tube, filters. 8. Follow up visit in 8 months or earlier if patient has any problems. 9. Patient will continue to use modafinil 200 mg in the morning. Thank you very much for allowing me to participate in the management of your patient. Shane Borrego MD, PhD, FAASM. Diplomat of [place] [employer] of Sleep Medicine, Sleep Medicine Board by [place] [employer] Internal Medicine Jeep Mechanic of [facility] [place] Objective - Vital Signs Vital Signs: Vital Signs Temp 97.5 F L 09/18/24 11:17 Pulse 57 L 09/18/24 11:17 Resp 16 09/18/24 11:17 BP 157/92 09/18/24 11:17 Pulse Ox 98 09/18/24 11:17 FiO2 Intake & Output 09/17/24 09/18/24 09/18/24 18:59 06:59 18:59 Weight 105.914 kg Home Medications: Home Medications Medication Instructions Recorded Confirmed Type Levothyroxine Sodium [Synthroid] 188 mcg .ROUTE AC-BRKFST 02/11/15 09/18/24 History modafiniL 200 mg PO AC-BRKFST 02/11/15 01/24/24 History atenoloL [Tenormin] 25 mg PO AC-BRKFST tab 02/16/15 09/18/24 Rx Cinnamon Bark [Cinnamon] 500 mg PO DAILY 03/21/16 08/30/20 History Magnesium 200 mg PO DAILY 03/21/16 08/30/20 History Losartan Potassium [Cozaar] 100 mg PO DAILY 08/30/20 09/18/24 History Tiotropium 18 Mcg/Puff [Spiriva] 1 puff INHALATION BID 01/24/24 09/18/24 History modafiniL [Provigil] 200 mg PO DAILY 09/18/24 09/18/24 History
== END ==
LOC: 3 N SLEEP 10:57
PROVIDERS: ATTEND Internal Medicine
DX: G47.33 Obstructive sleep apnea (adult) (pediatric) (principal); G47.419 Narcolepsy without cataplexy; E66.9 Obesity, unspecified; I10 Essential (primary) hypertension; E78.5 Hyperlipidemia, unspecified; E03.9 Hypothyroidism, unspecified; K21.9 Gastro-esophageal reflux disease without esophagitis; Z68.32 Body mass index [BMI] 32.0-32.9, adult; Z87.09 Personal history of other diseases of the respiratory system; Z90.89 Acquired absence of other organs; Z98.890 Other specified postprocedural states; Z88.1 Allergy status to other antibiotic agents; Z87.891 Personal history of nicotine dependence
CPT/HCPCS: 99212

== ENCOUNTER → 2025-02-17 | Outpatient (CLI) | payer MEDICARE ==
--- NOTE | 2025-02-17 10:10 | US ---
EXAMINATION TYPE: US arterial LE single level DATE OF EXAM: 02/17/2025 9:54 AM COMPARISONS: None. CLINICAL INDICATION: Male, 74 years old with history of I33.9 PERIPHERAL VASCULAR DISEASE, UNSPECIFIE D; PVD TECHNIQUE: Systolic pressures were taken of the upper and lower extremity arteries with ankle-brachia l indices and toe brachial indices calculated bilaterally. History of: Smoker: Prev. Quit 42 years ago Hypertension: Yes Diabetic: No Hyperlipidemia: No TIA/CVA: No Previous Vascular Surgery: No CAD: No CT: No Vascular Ulcers: No Claudication: No Gangrene: No FINDINGS: Doppler Waveforms: Right: Biphasic Left: Multiphasic Brachial Artery systolic pressure: Right: 144 Left: 142 Posterior Tibial artery systolic pressure: Right: 164 Left: 167 Dorsalis Pedis artery systolic pressure: Right: 167 Left: 159 Ankle-Brachial Indices: Right: 1.16 Left: 1.16 IMPRESSION: DONNIE: Right: Normal 0.9 - 1.4, Recommendation: None Left: Normal 0.9 - 1.4, Recommendation: None [facility], , 02/17/2025 10:07 AM
== END | disposition home or self-care (01) ==
LOC: RADUSWWP 09:28
PROVIDERS: ATTEND Psychiatry & Neurology Neurology
DX: I73.9 Peripheral vascular disease, unspecified (principal)
CPT/HCPCS: 93922